=== PATIENT | female | born 1985 ===

== ENCOUNTER 2017-12-08 14:25 | Emergency (ER) | payer OTHER ==
[2017-12-08 14:44] VITALS: BMI 25.6
[2017-12-08 14:45] VITALS: BP 105/71; PULSE 78; RESP 16; TEMP 98.1; O2SAT 99
--- NOTE | 2017-12-08 14:46 | ED PDOC ---
Arrival/HPI - General Time Seen by Provider: 12/08/17 14:41 Historian: Patient, Big Data Developer (nursing staff) EM Caveat: Language Barrier - History of Present Illness Narrative History of Present Illness (Text): 12/08/17 15:29 pt p/w + 8 days onset of right breast pain, worsening daily and today was the worse pain; pt states she couldnt see anyone until today due to her work; pt states she can feel something in her right breast area; pt states no fever/ chills/sweats, no cp/sob/palpitations, no abd pain, no n/v, no numbness/tingling , no urinary/bowel changes, no nipple discoloration/discharge/bleeding/pus noted ; pt states no fall/trauma/sick contact, no travel; pt arrived to ED for further eval; pt's without other complaints. Family hx: no breast cancer hx PMHx: pt with hx of right mastitis Time/Duration: > week (8 days) Symptom Onset: Gradual Symptom Course: Worsening Quality: Aching, Stabbing Severity Level: Severe Activities at Onset: Rest Context: Home Past Medical History - Provider Review Nursing Documentation Reviewed: Yes - Travel History Have you recently traveled outside [place] w/in the past 3 mons?: No - Past History Past History: No Previous - Infectious Disease Hx of Infectious Diseases: None - Past Medical History Past Medical History: No Previous Family/Social History - Physician Review Nursing Documentation Reviewed: Yes Family/Social History: No Known Family HX Smoking Status: Never Smoked Hx Alcohol Use: No Hx Substance Use: No Hx Substance Use Treatment: No Allergies/Home Meds Allergies/Adverse Reactions: Allergies No Known Allergies Allergy (Verified 12/08/17 14:44) Review of Systems - Review of Systems Constitutional: Normal Eyes: Normal ENT: Normal Respiratory: Normal Cardiovascular: Normal Gastrointestinal: Normal Genitourinary Female: Other (right breast pain) Musculoskeletal: Normal Skin: Normal Neurological: Normal Endocrine: Normal Hemo/Lymphatic: Normal Psychiatric: Normal Physical Exam Vital Signs Reviewed: Yes Vital Signs Temp Pulse Resp BP Pulse Ox 12/08/17 14:44 98.1 F 78 16 105/71 99 Temperature: Afebrile Blood Pressure: Normal Pulse: Regular Respiratory Rate: Normal Appearance: Positive for: Well-Appearing, Uncomfortable, Other (sitting on the exam bed, alert/awake, GCS = 15, oriented x 3, NAD, uncomfortable, cooperative, follows commands with ease) Pain Distress: None Mental Status: Positive for: Alert and Oriented X 3 - Systems Exam Head: Present: Atraumatic, Normocephalic Pupils: Present: PERRL Extroacular Muscles: Present: EOMI Conjunctiva: Present: Normal Ears: Present: Normal Mouth: Present: Moist Mucous Membranes, Normal Teeth, Other (no drooling/stridor , no exudate/lesions) Pharnyx: Present: Normal Nose (External): Present: Atraumatic Nose (Internal): Present: Normal Inspection Neck: Present: Normal Range of Motion, Trachea Midline. No: MIDLINE TENDERNESS Respiratory/Chest: Present: Clear to Auscultation, Good Air Exchange, Other ( CTA b/l, no w/r/r, no accessory muscle use noted, no tachypenia) Cardiovascular: Present: Regular Rate and Rhythm, Normal S1, S2 Abdomen: Present: Normal Bowel Sounds, Other (well nourished female, no focal tenderness, no clement's sign, no mcburney's point tenderness, no masses/rebound/ guarding/rigidity) Breast/Axillary: Present: Tender to Palpation (breast exam: no gross deformities noted, no nipple retractions b/l, no nipple discharge noted, + right breast at 8-9 oclock region tenderness is noted on exam, small/~ 1 cm mobile non-fluctuant lesion is palpable, + tender on exam, no indurations, no overlaying skin erythema is noted, no open sores noted, no axillary lymph nodes palpable). No: Discoloration, Nipple Discharge Back: Present: Normal Inspection. No: Midline Tenderness Upper Extremity: Present: Normal Inspection, Normal ROM, NORMAL PULSES, Neurovascularly Intact, Capillary Refill < 2s. No: Edema Lower Extremity: Present: Normal Inspection, NORMAL PULSES, Normal ROM, Deformity, Neurovascularly Intact, Capillary Refill < 2 s. No: Edema Neurological: Present: GCS=15, CN II-XII Intact, Speech Normal Skin: Present: Warm, Normal Color, Other (cap refill < 1sec, no ulcerations, no petechiae) Psychiatric: Present: Alert, Oriented x 3, Normal Insight Medical Decision Making ED Course and Treatment: 12/08/17 15:44 Impression: right breast pain, atraumatic i have consider all the differential diagnosis regarding pt's chief medical complaints/clinical findings, including but are not limited to: right breast pain, atraumatic; possible cystic A/P: right breast pain - observe - supportive care 12/08/17 15:45 pt is made aware of her medical results pt is encouraged outpt f/u pt is provided [facility] as [facility] f/u as outpt pt expressed understanding pt will be discharged home 12/08/17 15:46 Re-evaluation Time: 15:10 Reassessment Condition: Improving,but remains with symptoms - Medication Orders Current Medication Orders: Discontinued Medications Ibuprofen (Motrin Tab) 600 mg PO STAT STA Stop: 12/08/17 14:50 Last Admin: 12/08/17 15:09 Dose: 600 mg MAR Pain/Vitals Document 12/08/17 15:09 OCS (Rec: 12/08/17 15:10 OCS [id number]) Pain Reassessment Is This A Pain ReAssessment? Yes Sleep Is patient sleeping during reassessment? No Presence of Pain Presence of Pain Yes Location Left, Right or Bilateral Right Pain Location Body Site Breast Description Constant Intensity 10 Scale Used Numeric Aggravating Factors ADL's Disposition/Present on Arrival - Present on Arrival Any Indicators Present on Arrival: No History of DVT/PE: No History of Uncontrolled Diabetes: No Urinary Catheter: No History of Decub. Ulcer: No History Surgical Site Infection Following: None - Disposition Have Diagnosis and Disposition been Completed?: Yes Diagnosis: Breast pain, right, Breast cyst Disposition: HOME/ ROUTINE Disposition Time: 14:43 Patient Plan: Discharge Patient Problems: Current Active Problems Problem Status Onset Breast pain, right Acute Breast cyst Acute Condition: STABLE Discharge Instructions (ExitCare): Chest Pain (ED), Breast Self Exam for Women (ED), Breast Mass (ED), Cyst (ED) Print Language: JAPANESE Additional Instructions: Make sure to see your doctor in 1-2 days DRINK PLENTY OF FLUIDS take your medications as prescribed ENCOURAGE YOU TO PERFORM SELF BREAST EXAM WEEKLY Warm compress to right breast 20min/hr over the next 1-2 days RETURN TO ED IF worse pain, cant breath, persistent vomiting, high fever >101- 102 for hours, altered behavior, unable to urinate, heavy/persistent bleeding, passing out, chest pain, or other medical emergencies Prescriptions: Ibuprofen [Motrin] 400 mg PO QID #30 tab oxyCODONE/Acetaminophen [Percocet 5/325 mg Tab] 1 tab PO TID #10 tab Referrals: [facility] [Outside] - Follow up with primary [facility]ighborhood [facility] at [facility] [Outside] - Follow up with primary [facility] at [facility] [Outside] - Follow up with primary Forms: WORK NOTE, [facility] (Martiniquais)
== END 2017-12-08 15:00 | disposition home or self-care (01) ==
LOC: ED 14:25
DX: N60.01 Solitary cyst of right breast (principal); N64.4 Mastodynia